=== PATIENT | female | born 1985 | race Caucasian/White ===

== ENCOUNTER 2020-09-16 05:32 | Inpatient (IN) ==
--- NOTE | 2020-09-15 12:21 | History and Physical Report ---
DATE OF ADMISSION: 09/16/2020 PREOPERATIVE DIAGNOSES: 1. Intrauterine at 38 and 1/7th weeks. 2. Chronic hypertension, not on medication. 3. History of previous section, desires repeat, declines trial of labor. 4. Advanced maternal age. HISTORY OF PRESENT ILLNESS: The patient is a 35-year-old white female, 2, para 1-0-0-1 with a history of previous section at the [facility] who presents to labor and delivery for repeat section. She declines tubal ligation. Her has been fairly uncomplicated. She was a transfer of care from [place] at 29 weeks. She was diagnosed with chronic hypertension in her and was started on aspirin. Her blood pressures have remained good and she has had normal growth ultrasounds. The last one done on 09/12 showing an estimated weight of 40th percentile and AC at the 48th percentile. Her GBS is negative. She had a COVID test done on 09/08, which was negative. The patient notes good movement and no labor symptoms. ALLERGIES: No known drug allergies. MEDICATIONS: Aspirin and vitamin. PAST MEDICAL HISTORY: The patient is overall healthy. She denies thyroid disease, asthma, heart disease, heart murmur, diabetes, kidney or liver problems. PAST SURGICAL HISTORY: Includes removal of wisdom teeth and previous section. PAST OBSTETRICS AND GYNECOLOGIC HISTORY: G1 was in 11/2011, she delivered at 39 weeks a female weighing 7 pounds 8 ounces by and this is her second . 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 SOCIAL HISTORY: The patient denies tobacco, alcohol or drug use. PHYSICAL EXAMINATION: GENERAL: This is a well-developed, well-nourished white female in no acute distress. VITAL SIGNS: Blood pressure 122/84, weight is 204.9 pounds. NECK: Supple without thyromegaly or lymphadenopathy. CHEST: Clear to auscultation bilaterally. CARDIOVASCULAR: Regular rate and rhythm without murmurs, gallops or rubs. ABDOMEN: Gravid, soft and nontender. EXTREMITIES: Benign. PELVIC: Deferred. LABORATORY DATA: Blood type O positive, antibody negative. Pap in 03/2020 was negative with negative HPV. Chlamydia and gonorrhea negative. Rubella immune, RPR nonreactive, hepatitis B nonreactive, HIV nonreactive. Declined genetic testing. The patient failed her 28-week GTT at 131, but passed her 2-hour glucose tolerance test. Her GBS is negative and her COVID test on 09/08 was negative as well. ASSESSMENT AND PLAN: This is a 35-year-old white female, 2, para 1-0-0-1 with an intrauterine at 38 and 1/7th weeks who presents desiring a repeat section in the setting of chronic hypertension. In the setting of chronic hypertension, delivery is indicated between 38 and 0/7 weeks and 38-6/7 weeks for ACOG guidelines. The patient declines tubal ligation. The has been essentially uncomplicated. The risks of the surgery were discussed with the patient including the risks of anesthesia, bleeding requiring transfusion, infection and poor wound healing, damage to surrounding structures including bowel, bladder, vessels, nerves and ureters with need for further surgery, hospitalization or intervention. We discussed the risks of heart attack, blood clot, stroke, or and possible injury to the baby. Consent was reviewed and signed. Surgery is planned for Saturday, 09/16.
[2020-09-16] MEDS ORDERED: LACTATED RINGER'S 1,000 ML IV SCH (05:45)
[2020-09-16] MEDS ORDERED: ceFAZolin 2000MG 2,000 MG/15 ML SYR IV SCH (06:00)
[2020-09-16] MEDS ORDERED: CITRIC ACID/SODIUM CITRATE 15 ML UDC PO SCH (06:00)
[2020-09-16 06:28] LABS: Basophils % (auto) 0.1 %; Eosinophils % (auto) 0.5 %; Hematocrit (blood only) 38.9 % (37-47); Hemoglobin 12.4 g/dL (12.0-16.0); Immature Granulocytes % (auto) 0.4 %; Lymphocytes # (auto) 1.17 K/uL (1.2-3.4); Lymphocytes % (auto) 14.6 %; Mean Corpuscular Hemoglobin 26.1 pg (25-34); Mean Corpuscular Hgb Conc 31.9 g/dL (32-36); Mean Corpuscular Volume 81.9 fL (80-100); Mean Platelet Volume 11.1 fL (7.4-10.4); Monocytes % (auto) 6.1 %; Neutrophils # (auto) 6.28 K/uL (1.4-6.5); Neutrophils % (auto) 78.3 %; Platelet Count 285 K/uL (130-400); RDW Coefficient of Variation 13.6 % (11.5-14.5); RDW Standard Deviation 40.8 fL (36.4-46.3); Red Blood Count 4.75 M/uL (4.2-5.4); White Blood Count 8.02 K/uL (4.8-10.8)
[2020-09-16 06:29] LABS: Basophils # (auto) 0.01 K/uL (0-0.2); Eosinophils # (auto) 0.04 K/uL (0-0.5); Immature Granulocytes # (auto) 0.03 K/uL (0.00-0.02); Monocytes # (auto) 0.49 K/uL (0.11-0.59)
[2020-09-16 06:50] LABS: Appearance Urine Turbid (Clear); Bacteria Urine Automated Negative (Negative); Bilirubin Urine Negative (Negative); Blood Urine Negative (Negative); Color Urine Yellow; Epithelial Cell Urine Auto >30 /lpf (0-5); Glucose Urine UA Negative (Negative); Ketones Urine Negative (Negative); Leukocyte Esterase Urine Trace (Negative); Nitrite Urine Negative (Negative); Protein Urine Negative (Negative); Urobilinogen Urine Negative (Negative)
[2020-09-16] MEDS ORDERED: OXYTOCIN 10 UNITS/ML VIAL ONE (06:52)
[2020-09-16] MEDS ORDERED: MoRPHine SULFATE PF 1 MG/ML 10 ML AMP/VIAL ONE (06:53)
[2020-09-16] MEDS ORDERED: fentaNYL citrate 100 MCG/2 ML VIAL ONE (06:53)
[2020-09-16 07:10] LABS: RBC Urine Automated 0-4 /hpf (0-4)
[2020-09-16] MEDS ORDERED: MoRPHine SULFATE PF 1 MG/ML 10 ML AMP/VIAL INT SPINAL ONE (07:13)
[2020-09-16] MEDS ORDERED: PROMETHAZINE HCL 25 MG in SODIUM CHLORIDE 0.9% 50 ML IV PRN (07:13)
[2020-09-16] MEDS ORDERED: NALOXONE HCL 0.4 MG/1 ML VIAL/CARP IV PRN (07:13)
[2020-09-16] MEDS ORDERED: LACTATED RINGER'S 500 ML IV PRN (07:13)
[2020-09-16] MEDS ORDERED: NALOXONE HCL 1 MG in SODIUM CHLORIDE 0.9% 1000ML 1,000 ML IV PRN (07:13)
[2020-09-16] MEDS ORDERED: ONDANSETRON INJ 2 MG/ML 2 ML VIAL IV PRN (07:13)
[2020-09-16] MEDS ORDERED: ePHEDrine sulfate 50 MG/ML AMP IV PRN (07:13)
[2020-09-16] MEDS ORDERED: MoRPHine SULFATE 2 MG/ML CARP IV PRN (07:13)
[2020-09-16] MEDS ORDERED: NALOXONE HCL 0.08 MG in SYRINGE 1.8 ML IV PRN (07:13)
[2020-09-16] MEDS ORDERED: diphenhydrAMINE 50 MG/ML VIAL IV PRN (07:13)
--- NOTE | 2020-09-16 07:13 | Anesthesiology Consultation ---
Date of Service September 16, 2020 Assessment & Plan ASA ASA2 Proposed Anesthesia Anesthesia Type: General and Spinal Risk / Benefits Reviewed With: PT / POA / Parent / Guardian, Accepts Plan and Informed Consent Obtained History Surgery Operation Date: 09/16/20 07:30 Proposed Procedures p Section in LD - Yvonne Hanson MD, FACOG Height/Weight Height: 5 ft 4 in Weight: 92.533 kg Allergies Allergy/AdvReac Type Severity Reaction Status Date / Time No Known Drug Allergies Allergy Verified 09/15/20 09:11 Medications Home Medications Medication Instructions Recorded Confirmed Last Taken aspirin 81 mg tablet,delayed 81 mg PO DAILY 07/15/20 09/16/20 09/15/20 08:00 release PNV cmb#95-ferrous fumarate-FA 1 tab PO DAILY 09/13/20 09/16/20 09/15/20 08:00 [] NPO Date Last Intake of Fluids: 09/15/20 Time Last Intake of Fluids: 23:00 Date Last Intake of Solids: 09/15/20 Time Last Intake of Solids: 22:00 Past Medical History Medical History Abnormal biochemical finding on screening of mother, antepartum Gestational hypertension DURING CURRENT History of cervical dysplasia 04/2011 normal pap; 04/2012 normal pap; 11/25/2014 ASCUS, +HPV, +16, neg 18; 01/27/2015 colpo (ECC) LSIL, 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; 02/23/2016 LSIL, + HPV, +16, neg 18; 08/22/2017 colpo- chronic cervicitis; 03/21/2020 pap neg and HPV neg History of HPV infection #16 11/25/2014 and 02/23/2016 Supervision of elderly multigravida Exercise / Class Metabolic Activity II 4-5 Yardwork/Stairs/Walk up hill Past Family History Family History Grandmother (Paternal) Uterine cancer Grandmother (Maternal) Skin cancer Grandfather (Maternal) Prostate cancer Mother Diabetes type 1 Father Hypertension Uncle Cleft palate paternal Other No family history of adverse response to anesthesia Past Surgical History Surgical History History of delivery breech 2012 History of wisdom tooth extraction Past Anesthesia History No Hx of Anesthesia Complications and No Family Hx of Anesthesia Complications History of PONV No Hx of PONV and No Hx of Motion Sickness Social History Smoking Status: Never smoker Do You Dip or Chew Tobacco: No Hx Alcohol Use: Yes (social) Hx Substance Use: No substance use type: does not use Review of Systems denies fever/cough/ colds/ chest pain/ SOB/ ISELA denies ISELA Physical Exam Vital Signs Last Vital Signs Temp 36.5 C 09/16/20 05:47 Pulse 93 H 09/16/20 07:02 Resp 18 09/16/20 05:47 BP 139/88 09/16/20 07:02 ENMT Mouth: no TMJ abnormality and no dentition abnormality Thyromental Distance: > or= 3.5 Finger Breadths Mallampati Class: II Neck neck extension not limited Respiratory normal respiratory effort; no respiratory distress Auscultation: lungs clear to auscultation bilaterally Cardiovascular Rate/Rhythm: regular rate and regular rhythm Neurologic moves all extremities Psychiatric Orientation: alert and oriented x 3 Testing Laboratory Results 09/16/20 05:57 Urine Color Yellow 09/16/20 05:40 Urine Appearance Turbid (Clear) A 09/16/20 05:40 Urine pH 8.0 (4.5-7.5) H 09/16/20 05:40 Ur Specific Butler 1.020 (1.000-1.030) 09/16/20 05:40 Urine Protein Negative (Negative) 09/16/20 05:40 Urine Glucose (UA) Negative (Negative) 09/16/20 05:40 Urine Ketones Negative (Negative) 09/16/20 05:40 Urine Nitrite Negative (Negative) 09/16/20 05:40 Ur Leukocyte Esterase Trace (Negative) H 09/16/20 05:40 Urine WBC (Auto) 5-10 /hpf (0-5) H 09/16/20 05:40 Urine RBC (Auto) 0-4 /hpf (0-4) 09/16/20 05:40 U Hyaline Cast (Auto) 1-5 /lpf (0-5) 09/16/20 05:40 U Epithel Cells (Auto) >30 /lpf (0-5) H 09/16/20 05:40 Urine Bacteria (Auto) Negative (Negative) 09/16/20 05:40
[2020-09-16] MEDS ORDERED: SODIUM CHLORIDE 0.9% 1000ML 1,000 ML IV SCH (07:15)
[2020-09-16] MEDS ORDERED: DC INTRASPINAL MORPHINE SCH (07:15)
[2020-09-16] MEDS ORDERED: NO NARCOTICS OR SEDATIVES SCH (07:15)
--- NOTE | 2020-09-16 07:24 | History & Physical Bridge Note ---
Date of Service September 16, 2020 History & Physical Bridge Note I have examined the patient, reviewed the History & Physical and in the interval since the performance of the History & Physical I have noted the following changes of clinical significance: no changes noted
[2020-09-16] MEDS ORDERED: PHENYLEPHRINE 100MCG/ML 5ML SYR ONE (07:48)
[2020-09-16] MEDS ORDERED: ePHEDrine sulfate 50 MG/ML SYR ONE (07:48)
[2020-09-16] MEDS ORDERED: CARBOPROST TROMETHAMINE 250 MCG/ML AMPUL ONE (08:01)
--- NOTE | 2020-09-16 08:41 | Operative Report ---
PG Post Operative Report Pre & Post Diagnosis Operation Date: 09/16/20 07:30 Pre-Op Diagnosis: at 38.1 weeks gestation chronic hypertension desires repeat section Post-Op Diagnosis: same I identified the patient and participated in the time-out.: Yes Procedure Operation Date: 09/16/20 07:30 repeat lower uterine transverse section for delivery of live female infant at 0757 <No data on this case meets the specified criteria> Surgeon Yvonne Hanson MD, FACOG Public Area Attendant Dr. Dietz Estimated Blood Loss 500 Findings Consistent with Post-Op Diagnosis viable female in cephalic presentation apgars 9/10 nl uterus/tubes /ovaries bilaterally Fluids 600cc Specimens none Drains feliciano Anesthesia Type Spinal Disposition Accompanied Patient To Recovery: Yes Disposition: L&D Indications with iup at 38 1/7 weeks and chtn. Previous c/s for breech. Desires repeat. Description of Procedure The patient was taken to the operating room where she was identified verbally and by bracelet. She was seated on the operating table where a spinal anesthetic was placed by anesthesia. she was then placed in the supine position with a leftward tilt. A Feliciano catheter was placed sterilely. the patient was prepped and draped in a normal standard fashion. the anesthetic was tested and found to be adequate. A time-out was held, identifying correct patient, procedure, positioning and preoperative antibiotics. There were no concerns. A Pfannenstiel skin incision was made with a knife and taken down to the underlying layer of fascia with the knife and Bovie electrocautery. Bleeding was attended to with Bovie cautery. The fascia was incised in the midline with the knife and taken out laterally with scissors. the superior edge of the fascial incision was grasped, elevated and the underlying layer of rectus muscle was taken off bluntly and with scissors. In a similar fashion, the inferior edge of the fascial incision was grasped, elevated and the underlying layer of rectus muscle was taken off bluntly and with scissors. The muscles were bluntly in the midline. The peritoneum was entered bluntly. The incision was then stretched. The bladder blade was placed. The vesicouterine peritoneum was identified, entered with scissors and taken out laterally with scissors. The bladder flap was created digitally A hysterotomy incision was scored with a knife and the incision was stretched cephalad and caudad with the equipment operator wage hand's fingers. The operators hand was placed into the incision and the head was delivered atraumatically. nuchal cord x 1 easily reduced. The nose and mouth were bulb suctioned. the rest of the infant was then delivered without difficulty. The nose and mouth were again bulb suctioned. the cord was clamped and cut and the was then handed off to the awaiting repairer art objects for drying and attention. Cord blood and segment were obtained. The placenta was manually extracted. the uterus was exteriorized and cleared of all clot and debris with moistened laparotomy sponges. The hysterotomy incision was repaired in two layers, the first in a running locked layer, the second in an imbricating layer. Hemostasis was noted to be good. Posterior cul-de-sac was irrigated and cleared of all clot and debris. The hysterotomy incision was again inspected and found to be hemostatic. the uterus was reinteriorized. Hysterotomy incision was again inspected and one figure of eight suture required for hemostasis. Rectus muscles were reapproximated with several interrupted stitches of 0 Vicryl. The fascia was then reapproximated with 0 Vicryl starting at the edges and meeting in the midline. The subcuticular tissues were copiously irrigated and bleeding was attended to with cautery. The skin was then closed with 4-0 Vicryl in a subcuticular fashion. All sponge , lap and needle counts were correct x 2. The patient tolerated the procedure well and was taken to the recovery room in stable condition. I attest to the content of the Intraoperative Record and any orders documented therein. Any exceptions are noted below.
--- NOTE | 2020-09-16 08:59 | Anesthesiology Progress Note ---
Date of Service September 16, 2020 Anesthesia Post Procedure Vital Signs Vital Signs: Temp Pulse Resp BP Pulse Ox 09/16/20 08:57 85 128/72 09/16/20 08:52 110 H 100 09/16/20 08:47 99 H 134/78 100 09/16/20 08:44 114 H 91 09/16/20 08:42 90 99 09/16/20 08:37 99 H 100 09/16/20 08:36 107 H 138/85 09/16/20 07:02 93 H 139/88 09/16/20 07:00 36.8 C 93 H 18 139/88 09/16/20 05:57 105 H 151/74 H 09/16/20 05:47 36.5 C 118 H 18 181/103 H Transfer of Care Handoff Completed per policy Notes Mental Status: alert / awake / arousable and participated in evaluation Patient Amnestic to Procedure: Yes Nausea / Vomiting: adequately controlled Pain: adequately controlled Airway Patency, RR, SpO2: stable & adequate BP & HR: stable & adequate Hydration State: stable & adequate Anesthetic Complications: no major complications apparent and Pt Satisfied with anesthetic care
[2020-09-16] MEDS ORDERED: CARBOPROST TROMETHAMINE 250 MCG/ML AMPUL IM ONE (09:44)
[2020-09-16] MEDS: KETOROLAC 30 MG/ML VIAL IV PRN ×2 (09:53→21:56)
[2020-09-16] MEDS ORDERED: BENZOCAINE 20% AER SPR 82.5 GM CAN EXT PRN (10:03)
[2020-09-16] MEDS ORDERED: SENNA 8.6 MG TAB PO PRN (10:03)
[2020-09-16] MEDS ORDERED: HYDROCORTISONE ACETATE 25 MG SUPP PR PRN (10:03)
[2020-09-16] MEDS ORDERED: SUPERCREAM 0.870% 15 GM JAR EXT PRN (10:03)
[2020-09-16] MEDS ORDERED: DIPHTHERIA/TETANUS/PERTUSSIS 0.5 ML SYR/VIAL IM ONE (10:03)
[2020-09-16] MEDS ORDERED: MAGNESIUM HYDROXIDE SUSP 30 ML UDC PO PRN (10:03)
[2020-09-16] MEDS: OXYTOCIN 20 UNITS in LACTATED RINGER'S 1,000 ML IV SCH ×2 (10:49→19:09)
[2020-09-16] MEDS: SIMETHICONE 80 MG CHEW PO SCH ×3 (14:14→19:55)
[2020-09-16] MEDS ORDERED: DOCUSATE SODIUM 100 MG CAP PO ONE (19:38)
[2020-09-16] MEDS: DOCUSATE SODIUM 100 MG CAP PO SCH (19:56)
[2020-09-17] MEDS ORDERED: KETOROLAC 30 MG/ML VIAL IV PRN (01:14)
[2020-09-17] MEDS ORDERED: ONDANSETRON INJ 2 MG/ML 2 ML VIAL IV PRN (01:14)
[2020-09-17] MEDS ORDERED: diphenhydrAMINE Capsule 25 MG CAP PO PRN (01:14)
[2020-09-17] MEDS ORDERED: PROMETHAZINE HCL 25 MG in SODIUM CHLORIDE 0.9% 50 ML IV PRN (01:14)
[2020-09-17] MEDS ORDERED: diphenhydrAMINE 50 MG/ML VIAL IV PRN (01:14)
[2020-09-17] MEDS ORDERED: MEPERIDINE HCL 50 MG/ML CARP IV PRN (01:14)
[2020-09-17] MEDS: IBUPROFEN 600 MG TAB PO PRN ×5 (02:25→21:00)
[2020-09-17] MEDS: oxyCODONE/ACETAMINOPHEN 5mg/325mg TAB PO PRN ×5 (02:26→20:59)
[2020-09-17 06:14] LABS: Basophils # (auto) 0.02 K/uL (0-0.2); Basophils % (auto) 0.2 %; Eosinophils # (auto) 0.14 K/uL (0-0.5); Eosinophils % (auto) 1.7 %; Hematocrit (blood only) 34.1 % (37-47); Hemoglobin 10.9 g/dL (12.0-16.0); Immature Granulocytes # (auto) 0.02 K/uL (0.00-0.02); Immature Granulocytes % (auto) 0.2 %; Lymphocytes # (auto) 0.88 K/uL (1.2-3.4); Lymphocytes % (auto) 10.4 %; Mean Corpuscular Hemoglobin 26.1 pg (25-34); Mean Corpuscular Volume 81.6 fL (80-100); Mean Platelet Volume 10.3 fL (7.4-10.4); Monocytes # (auto) 0.48 K/uL (0.11-0.59); Monocytes % (auto) 5.7 %; Neutrophils # (auto) 6.92 K/uL (1.4-6.5); Neutrophils % (auto) 81.8 %; Platelet Count 240 K/uL (130-400); RDW Coefficient of Variation 13.7 % (11.5-14.5); RDW Standard Deviation 40.8 fL (36.4-46.3); Red Blood Count 4.18 M/uL (4.2-5.4); White Blood Count 8.46 K/uL (4.8-10.8)
--- NOTE | 2020-09-17 07:25 | Obstetrical Progress Note ---
Date of Service September 17, 2020 Postoperative day #1 from section the patient is feeling well pain is well controlled she is currently breast-feeding she has no extremity pain states her bleeding is minimal Assessment & Plan (1) Previous delivery affecting , antepartum: Continue current care Physical Exam Constitutional WD/WN, vitals as above Respiratory normal respiratory effort, lungs clear to auscultation Cardiovascular RRR, no murmur, no edema Results & Data ([facility]) Vital Signs (Past 12 Hours) Vital Signs Temp Pulse Pulse Resp BP Pulse Ox 09/17/20 03:56 98.1 F 97 H 18 127/82 09/17/20 01:00 18 97 09/17/20 00:00 18 97 09/16/20 23:45 97.7 F 93 H 18 100/67 98 09/16/20 23:00 18 97 09/16/20 21:50 16 97 09/16/20 20:50 16 94 09/16/20 19:50 97.5 F L 109 H 16 124/87 98
[2020-09-17] MEDS: FERROUS SULFATE 325 MG TAB PO SCH (09:08)
[2020-09-17] MEDS: DOCUSATE SODIUM 100 MG CAP PO SCH ×2 (09:08→20:55)
[2020-09-17] MEDS: PRENATAL VITAMIN 1 TAB PO SCH (09:08)
[2020-09-17] MEDS: SIMETHICONE 80 MG CHEW PO SCH ×4 (09:09→20:56)
[2020-09-17] MEDS ORDERED: bisacodyL 5 MG TABEC PO SCH (20:00)
[2020-09-18] MEDS: IBUPROFEN 600 MG TAB PO PRN ×2 (01:51→08:37)
[2020-09-18] MEDS: oxyCODONE/ACETAMINOPHEN 5mg/325mg TAB PO PRN ×2 (01:52→08:36)
[2020-09-18 06:05] LABS: Hematocrit (blood only) 32.3 % (37-47); Hemoglobin 10.3 g/dL (12.0-16.0)
--- NOTE | 2020-09-18 08:02 | Obstetrical Progress Note ---
Date of Service September 18, 2020 Assessment & Plan (1) Chronic hypertension during , antepartum: (2) Previous delivery affecting , antepartum: Doing well. Routine care. Plan d/c home. NO issues with blood pressure, but given chtn, will have her come in in a week for bp check. Instructions reviewed. Day #:: 2 Subjective Ambulation: ambulating normally Voiding: no voiding problems Passing Gas:: Yes Diet Tolerance:: regular diet Lochia:: Small Feeding Type:: breast feeding Physical Exam Constitutional WD/WN, vitals as above Gastrointestinal (Abdomen) soft, nt, nd, incision c/d/i Psychiatric A+Ox3, euthymic affect Results & Data ([facility]) Vital Signs (Past 12 Hours) Vital Signs Temp Pulse Resp BP Pulse Ox 09/17/20 23:45 36.6 C 102 H 18 141/90 H 100
[2020-09-18] MEDS ORDERED: bisacodyL 10 MG SUPP PR PRN (08:34)
[2020-09-18] MEDS: PRENATAL VITAMIN 1 TAB PO SCH (08:36)
[2020-09-18] MEDS: DOCUSATE SODIUM 100 MG CAP PO SCH (08:36)
[2020-09-18] MEDS: FERROUS SULFATE 325 MG TAB PO SCH (08:36)
[2020-09-18] MEDS: SIMETHICONE 80 MG CHEW PO SCH (08:36)
--- NOTE | 2020-09-20 02:02 | Discharge Summary (DS) ---
PREOPERATIVE DIAGNOSES: 1. Intrauterine at 38 and 1/7th weeks. 2. History of chronic hypertension, on medications. 3. History of previous section, desires repeat and declines trial of labor. 4. Advanced maternal age. POSTOPERATIVE DIAGNOSES: 1. Intrauterine at 38 and 1/7th weeks. 2. History of chronic hypertension, on medications. 3. History of previous section, desires repeat and declines trial of labor. 4. Advanced maternal age. PROCEDURES: Repeat lower transverse section. HISTORY OF PRESENT ILLNESS: The patient is a 35-year-old white female, 2, para 1-0-0-1 with history of previous section at the [facility] who presents to labor and delivery for repeat section. She declines tubal ligation. Her has been fairly uncomplicated. She was a transfer of care from [place] at 29 weeks. She was diagnosed with chronic hypertension in her and was started on aspirin. Her blood pressures remained good and she has had normal growth ultrasounds. GBS is negative. COVID 09/08/2020 negative. The patient with good movement, no labor symptoms. For the rest of the patient's detailed history and physical, please see her history and physical. ASSESSMENT: This is a 35-year-old white female, 2, para 1 with an intrauterine 38 and 1/7th weeks who presents for repeat section in the setting of chronic hypertension. In the setting of chronic hypertension, delivery is indicated between 38 and 0/7 weeks and 38 and 6/7 weeks per ACOG guidelines. HOSPITAL COURSE: The patient was admitted. She underwent a repeat lower transverse section without difficulty. Estimated blood loss 500 mL. She delivered a viable female in cephalic presentation with Apgars of 9 and 10. There were normal uterus, tubes, and ovaries bilaterally. The patient's postoperative course was uncomplicated. She tolerated a regular diet, ambulated without difficulty, voided after the removal of her Spence catheter and had her pain well controlled with oral pain medications. She was discharged home on postoperative day #2. Her discharge H and H was 10.3 and 32.3. She will return in 6 weeks for postoperative care.
== END 2020-09-18 11:55 | disposition home or self-care (01) | DRG 788 ==
LOC: 4S1 05:32 → EDSTATUS 07:30 → 4S2 11:10